=== PATIENT | female | born 1945 | race Caucasian/White ===

== ENCOUNTER 2017-10-28 15:39 | Inpatient (IN) | payer OTHER, MEDICAID ==
[~2017-10-28] VITALS: Ht 167.6 cm; Wt 65.8 kg
[2017-10-28] MEDS ORDERED: BENAZEPRIL (15:49)
[2017-10-28] MEDS ORDERED: LIPITOR (15:49)
--- NOTE | 2017-10-28 16:22 | NUR ---
PT IS IN ROOM #1B. DR NOVA EVALUATED THE PT.
--- NOTE | 2017-10-28 16:23 | NUR ---
PT REFUSED PAIN MEDICATION. DR NOVA NOTIFIED.
[2017-10-28] MEDS ORDERED: MORPHINE SULFATE 4 MG/1 ML DISP.SYRIN ONE (16:39)
[2017-10-28] MEDS ORDERED: MORPHINE SULFATE 2 MG/1 ML DISP.SYRIN IV ONE (16:45)
[2017-10-28] MEDS ORDERED: MORPHINE SULFATE 2 MG/1 ML DISP.SYRIN ONE (16:50)
--- NOTE | 2017-10-28 17:02 | NUR ---
Transportation arranged with [facility] to transport patient to [facility] Radiology Department for imaging. Trip #[id number], ETA [id number].
--- NOTE | 2017-10-28 18:29 | NUR ---
PT LEFT TO [facility] FOR CT OF THE HEAD AND CERVICAL SPINE VIA BLS AMBULANCE ACCORDING TO DR AVTAR GALINDO.
--- NOTE | 2017-10-28 19:10 | NUR ---
REPORT GIVEN TO OPERATION SHIFT SUPERVISOR RN,
--- NOTE | 2017-10-28 20:05 | NUR ---
PT REPORTS NEW ONSET OF RT HIP PAIN. MD HERNÁNDEZ MADE AWARE.
--- NOTE | 2017-10-28 20:20 | NUR ---
CORPORATE AUDITOR AT BEDSIDE FOR RT HIP SCAN
[2017-10-28] MEDS ORDERED: TRAMADOL HCL 50 MG TABLET PO ONE (20:30)
[2017-10-28] MEDS ORDERED: TRAMADOL HCL 50 MG TABLET ONE (20:31)
[2017-10-28 21:05] LABS: BASOPHILS % (AUTO) 0.4 % (0.0-2.0); EOSINOPHILS # (AUTO) 0.1 K/uL (0.0-0.7); EOSINOPHILS % (AUTO) 1.6 % (0.0-7.0); HEMATOCRIT 39.8 % (31.2-41.9); HEMOGLOBIN 13.4 g/dL (10.9-14.3); LYMPHOCYTES # (AUTO) 1.1 K/uL (20.0-40.0); LYMPHOCYTES % (AUTO) 15.2 % (20.5-51.5); MEAN CORPUSCULAR HEMOGLOBIN 32.1 uug (24.7-32.8); MEAN CORPUSCULAR HGB CONC 34 g/dL (32.3-35.6); MEAN CORPUSCULAR VOLUME 95.5 fL (75.5-95.3); MONOCYTES # (AUTO) 0.8 K/uL (2.0-10.0); NEUTROPHILS # (AUTO) 4.9 K/uL (1.8-8.9); NEUTROPHILS % (AUTO) 70.8 % (38.5-71.5); PLATELET COUNT (AUTO) 249 K/uL (179-408); RED BLOOD CELL COUNT(AUTO) 4.17 MIL/uL (3.63-4.92)
[2017-10-28 21:11] LABS: CARBON DIOXIDE 25 mmol/L (21-32); CHLORIDE 104 mmol/L (98-107); CREATININE 0.9 mg/dL (0.6-1.3); GLUCOSE 116 mg/dL (74-106); POTASSIUM 4.4 mmol/L (3.5-5.1); UREA NITROGEN, BLOOD 20 mg/dL (7-18)
--- NOTE | 2017-10-28 21:20 | NUR ---
CALL RECEIVED FROM BETH Gómez/ [facility] PERTAINING TO PT STATUS FOR TRANSFER. CALL GIVEN TO MD HERNÁNDEZ FOR ADDITIONAL INFO.
--- NOTE | 2017-10-29 01:08 | NUR ---
PT IN BED RESTING QUIETLY WITH EYES CLOSED. PT IS CALM AND COOPERATIVE. NO SIGNS OF DISTRESS WITNESSED AT THIS TIME.
[2017-10-29] MEDS ORDERED: ONDANSETRON 4 MG/2 ML VIAL IV PRN (02:00)
[2017-10-29] MEDS ORDERED: Z GUARD REMEDY PASTE 57 GM TUBE TOP PRN (02:00)
[2017-10-29] MEDS ORDERED: MAGNESIUM HYDROXIDE 30 ML LIQUID UDC PO PRN (02:00)
[2017-10-29] MEDS ORDERED: ACETAMINOPHEN 325 MG TABLET PO PRN (02:00)
[2017-10-29] MEDS ORDERED: HYDROCODONE/APAP 5-325MG TABLET PO PRN (02:00)
--- NOTE | 2017-10-29 02:35 | NUR ---
REPORT GIVEN TO MEDSUR NURSEHAILEY
[2017-10-29 03:45] VITALS: BP 133/76
--- NOTE | 2017-10-29 03:50 | NUR ---
Pt. admitted to [facility], under care of Dr. REYEZ Belongs List completed
--- NOTE | 2017-10-29 04:30 | NUR ---
Nursing Note: Report received from ER nurse Pt is 72 y/o female. Admitted to [facility] from ER for closed head injury Pt awake alert oriented x 3. Respirations unlabored on room air. Lungs clear on auscultation bilaterally. Bowel sounds present in all 4 quadrants. Pt noted to have strong grasp bilaterally in upper extremities. No change in LOC. Able to move bilateral lower extremities but is reporting pain on Right lower extremity that has been relieved by medication. Skin generally intact except for wound on left allen which was photographed. Pt able to answer questions and make needs known as well. Pt oriented to room. Instructed to press call light for assistance. Pt reporting the inability to walk due to hip pain. Side rails up x 2. Bed in locked position and low. Call light in reach at all times. Will continue to monitor.
--- NOTE | 2017-10-29 07:20 | NUR ---
PATIENT IS AWAKE ALERT AND ORIENTED DENIES PAIN OR DISCOMFORTS AT THIS TIME WAITING TO KNOW WHEN THE DOCTOR WILL BE HERE TO SEE HER REASSURED HER THAT SOON THE DOCTOR STARTS TO MAKE ROUNDS I WILL LET HER KNOW. CALL LIGHTS ARE WITHIN EASY REACH AT THIS TIME AND WILL CONTINUE TO OBSERVE.
[2017-10-29] MEDS ORDERED: BENAZEPRIL HCL 10 MG TABLET PO SCH (09:00)
--- NOTE | 2017-10-29 10:30 | NUR ---
PATIENT NOTED TO HAVE ABRASION ON TOP PART OF HER BACK MD AWARE WITH ORDERS AND NOTED
[2017-10-29] MEDS ORDERED: BACITRACIN/POLYMYXIN B OINT 15 GM TUBE TOP SCH (10:45)
--- NOTE | 2017-10-29 11:34 | NUR ---
PATIENT SEEN BY THE PHYSICAL THERAPY AND SHE WAS ABLE TO AMBULATE IN THE HALLWAY WITH [facility].
[2017-10-29 12:00] VITALS: BP 115/82
[2017-10-29] MEDS ORDERED: BENA20TA9 PO (13:48)
[2017-10-29] MEDS ORDERED: ATOR10TA PO (13:49)
[2017-10-29] MEDS ORDERED: OXYB5TAB PO (13:50)
[2017-10-29] MEDS ORDERED: ASPI-605 PO (13:51)
[2017-10-29] MEDS ORDERED: GABA-534 PO (13:51)
[2017-10-29] MEDS ORDERED: RAME8TAB15 PO (14:08)
[2017-10-29 16:00] VITALS: BP 117/76
--- NOTE | 2017-10-29 16:55 | NUR ---
NEW ORDERS TO DISCHARGE PATIENT HOME NOTED FROM DR JIMÉNEZ PATIENT AWARE AND STATED THAT HER FRIEND WILL PICK HER UP.
--- NOTE | 2017-10-29 17:25 | NUR ---
DISCHARGE INSTRUCTIONS GIVEN TO PATIENT AND PATIENT STATED WILL CALL OWN DOCTOR TO SET UP APPOINTMENT THIS WEEK.AWAITING FOR HER RIDE AT THIS TIME
--- NOTE | 2017-10-29 17:47 | NUR ---
PATIENT DISCHARGED PICKED UP BY HER FRIEND ALBERTO IN SATISFACTORY CONDITION WITH ALL OF HER PERSONAL BELONGINGS.PATIENT STATED WILL CALL HER OWN DOCTOR HERSELF
== END 2017-10-29 17:47 | disposition home or self-care (01) | DRG 90 ==
LOC: ER 15:42 → MED 10-29 03:23
PROVIDERS: ADMIT Internal Medicine; ATTEND Internal Medicine
DX: S06.0X0A Concussion without loss of consciousness, initial encounter (principal); V48.4XXA Person boarding or alighting a car injured in noncollision transport accident, initial encounter; Y93.89 Activity, other specified; Y92.89 Other specified places as the place of occurrence of the external cause; M51.34 Other intervertebral disc degeneration, thoracic region; M50.322 Other cervical disc degeneration at C5-C6 level; M51.36 Other intervertebral disc degeneration, lumbar region; E78.5 Hyperlipidemia, unspecified; Z96.652 Presence of left artificial knee joint; Z96.641 Presence of right artificial hip joint; M85.80 Other specified disorders of bone density and structure, unspecified site; I10 Essential (primary) hypertension; Z87.891 Personal history of nicotine dependence; Z79.82 Long term (current) use of aspirin; M25.512 Pain in left shoulder; R94.31 Abnormal electrocardiogram [ECG] [EKG]; R94.4 Abnormal results of kidney function studies; Z79.899 Other long term (current) drug therapy
CPT/HCPCS: 36415; 70450; 71045; 72125; 72170; 73030; 73502; 85025; 93005; 97165; A4663; J2270

== ENCOUNTER 2017-10-31 10:35 | Inpatient (IN) | payer OTHER, MEDICAID ==
[~2017-10-31] VITALS: Ht 167.6 cm; Wt 71.4 kg
[~2017-10-31 10:35] MED LIST: ASPI-605 PO; ATOR10TA PO; BENA20TA9 PO; GABA-534 PO; OXYB5TAB PO; RAME8TAB15 PO
[2017-10-31] MEDS ORDERED: MECL-102 PO (10:52)
[2017-10-31] MEDS ORDERED: ONDANSETRON 4 MG/2 ML VIAL IV ONE (11:15)
[2017-10-31] MEDS ORDERED: SILVER SULFADIAZINE 1% CREAM 50 GM TP ONE (11:15)
[2017-10-31] MEDS ORDERED: SILVER SULFADIAZINE 1% CREAM 25 GM TUBE TP ONE ×2 (11:27→22:15)
[2017-10-31] MEDS ORDERED: ONDANSETRON 4 MG/2 ML VIAL ONE (11:28)
[2017-10-31 11:34] LABS: BASOPHILS % (AUTO) 0.7 % (0.0-2.0); EOSINOPHILS # (AUTO) 0.2 K/uL (0.0-0.7); EOSINOPHILS % (AUTO) 2.5 % (0.0-7.0); HEMATOCRIT 36.2 % (31.2-41.9); HEMOGLOBIN 12.5 g/dL (10.9-14.3); LYMPHOCYTES # (AUTO) 1.4 K/uL (20.0-40.0); LYMPHOCYTES % (AUTO) 21.5 % (20.5-51.5); MEAN CORPUSCULAR HEMOGLOBIN 33.4 uug (24.7-32.8); MEAN CORPUSCULAR HGB CONC 35 g/dL (32.3-35.6); MEAN CORPUSCULAR VOLUME 96.6 fL (75.5-95.3); MONOCYTES # (AUTO) 0.6 K/uL (2.0-10.0); MONOCYTES % (AUTO) 8.9 % (0.0-11.0); NEUTROPHILS # (AUTO) 4.2 K/uL (1.8-8.9); NEUTROPHILS % (AUTO) 66.4 % (38.5-71.5); PLATELET COUNT (AUTO) 258 K/uL (179-408); RED BLOOD CELL COUNT(AUTO) 3.74 MIL/uL (3.63-4.92); WHITE BLOOD COUNT (AUTO) 6.4 K/uL (3.8-11.8)
--- NOTE | 2017-10-31 11:34 | NUR ---
PATIENT WAS SEEN BY MD FOR C/O WOUND ON HER UPPER BACK AND PAIN. STATES SHE FELL COUPLE DAYS AGO. WOUND CLEANSED AND DRESSED.. SILVADENE CREAM APPLIED ORDERED BY .
[2017-10-31 11:43] LABS: CARBON DIOXIDE 19 mmol/L (21-32); CHLORIDE 107 mmol/L (98-107); CREATININE 0.9 mg/dL (0.6-1.3); GLUCOSE 95 mg/dL (74-106); POTASSIUM 3.9 mmol/L (3.5-5.1); UREA NITROGEN, BLOOD 21 mg/dL (7-18)
[2017-10-31 11:59] LABS: ALANINE AMINOTRANSFERASE 27 U/L (14-59); ALKALINE PHOSPHATASE 89 U/L (50-136); ASPARTATE AMINOTRANSFERASE 18 U/L (15-37); BILIRUBIN,DIRECT 0.2 mg/dL (0.0-0.2); BILIRUBIN,TOTAL 0.8 mg/dL (0.2-1.0); TOTAL PROTEIN, SERUM 7.2 g/dL (6.4-8.2)
--- NOTE | 2017-10-31 12:38 | NUR ---
PATIENT STATES NAUSEA HAS DIMINISHED. PATIENT AWARE OF PENDING ADMISSION. REPORT GIVEN TO KACEY BARAJAS.
[2017-10-31] MEDS ORDERED: PRAM0.253 PO (12:59)
[2017-10-31] MEDS ORDERED: ONDANSETRON 4 MG/2 ML VIAL IV PRN (13:15)
[2017-10-31] MEDS ORDERED: HYDROCODONE/APAP 5-325MG TABLET PO PRN ×2 (13:15→22:00)
[2017-10-31] MEDS ORDERED: Z GUARD REMEDY PASTE 57 GM TUBE TOP PRN (13:15)
[2017-10-31] MEDS ORDERED: MAGNESIUM HYDROXIDE 30 ML LIQUID UDC PO PRN (13:15)
[2017-10-31] MEDS ORDERED: ACETAMINOPHEN 325 MG TABLET PO PRN (13:15)
[2017-10-31] MEDS ORDERED: HYDROCODONE/APAP 10-325 MG TABLET PO PRN (13:15)
[2017-10-31] MEDS ORDERED: TEMAZEPAM 15 MG CAPSULE PO PRN (13:15)
[2017-10-31] MEDS ORDERED: PRAMIPEXOLE 0.25 MG TABLET PO PRN (13:30)
--- NOTE | 2017-10-31 13:46 | NUR ---
STILL AITING FOR INSURANCE TO ANSWER SOME QUESTIONS BEFORE ADMITTING PATIENT TO HOSPITAL ROOM... PATIENT IS AWAKE AND ALERT WITH NO NEW COMPLAINTS. SHE DRANK SOME ORANGE JUICE
[2017-10-31 14:15] VITALS: BP 102/71
--- NOTE | 2017-10-31 14:15 | NUR ---
Patient transferred from ER to med-surg floor at this time in stable condition, no s/s of distress. Vital signs within normal limits. fall risk. bed alarm on. id band placed. no complaints of pain verbalized by patient at this time. Patient does complain of vertigo with sudden head movements. a/ox4, guarded. weak gait. PT consult placed. pictures taken of wounds, placed in chart. wound care consult ordered. will continue to monitor throughout shift and follow admitting orders.
[2017-10-31] MEDS: MECLIZINE HCL 25 MG TABLET PO SCH ×2 (15:23→21:34)
[2017-10-31 15:51] VITALS: BP 94/58
[2017-10-31] MEDS: IV NS 1000 ML 1,000 ML IV PRN (16:00)
[2017-10-31] MEDS ORDERED: SILVER SULFADIAZINE 1% CREAM 50 GM TP SCH (16:30)
[2017-10-31] MEDS: GABAPENTIN 300 MG CAPSULE PO SCH (17:40)
--- NOTE | 2017-10-31 18:02 | NUR ---
No significant changes from time of admission. vital signs wnl. ivf running. no signs of distress. silvadene cream ordered for wound care. tolerating diet very well. bed alarm on, call light within reach of patient.
--- NOTE | 2017-10-31 19:30 | NUR ---
RECEIVED SHIFT REPORT FROM DAY SHIFT RN. PT IN BED. NO PAIN, C/P, SOB, N/V. IVF NS INFUSING AT 75 CC/HR VIA 22W G R FOREARM. BED IN LOW AND LOCKED POSITION WITH BILATERAL UPPER SIDERAILS UP. CALL LIGHT WITHIN REACH. FRIEND AT BEDSIDE.
[2017-10-31 20:00] VITALS: BP 105/53
[2017-10-31] MEDS: ATORVASTATIN 10 MG TABLET PO SCH (21:34)
--- NOTE | 2017-10-31 21:58 | NUR ---
PT C/O ACUTE R FEMORAL PAIN. UPON ASSESSMENT, NEGATIVE AMOS'S SIGN. PT C/O AGGRAVATING PAIN WHEN COUNTER PRESSURE IS APPLIED. VICENTA YANES, NOTIFIED, RECEIVED ORDER FOR NORCO 5/325 MG PRN AND XRAY OF R FEMUR. ORDERS NOTED AND CARRIED OUT. WILL CONTINUE TO MONITOR.
[2017-10-31] MEDS: SILVER SULFADIAZINE 1% CREAM 50 GM TP SCH (22:51)
[2017-11-01 04:40] VITALS: BP 104/65
[2017-11-01] MEDS: MECLIZINE HCL 25 MG TABLET PO SCH ×3 (05:53→21:02)
[2017-11-01] MEDS: IV NS 1000 ML 1,000 ML IV PRN ×2 (05:57→20:53)
[2017-11-01] MEDS: PANTOPRAZOLE SODIUM 40 MG TABLET.DR PO SCH (06:00)
[2017-11-01 06:12] LABS: BASOPHILS % (AUTO) 0.4 % (0.0-2.0); EOSINOPHILS # (AUTO) 0.2 K/uL (0.0-0.7); EOSINOPHILS % (AUTO) 3.6 % (0.0-7.0); HEMATOCRIT 32.3 % (31.2-41.9); LYMPHOCYTES # (AUTO) 1.3 K/uL (20.0-40.0); MEAN CORPUSCULAR HEMOGLOBIN 32.7 uug (24.7-32.8); MEAN CORPUSCULAR HGB CONC 34 g/dL (32.3-35.6); MEAN CORPUSCULAR VOLUME 95.7 fL (75.5-95.3); MONOCYTES # (AUTO) 0.7 K/uL (2.0-10.0); MONOCYTES % (AUTO) 13.6 % (0.0-11.0); NEUTROPHILS # (AUTO) 2.9 K/uL (1.8-8.9); NEUTROPHILS % (AUTO) 57.4 % (38.5-71.5); PLATELET COUNT (AUTO) 239 K/uL (179-408); RED BLOOD CELL COUNT(AUTO) 3.37 MIL/uL (3.63-4.92)
[2017-11-01 06:32] LABS: CARBON DIOXIDE 24 mmol/L (21-32); CHLORIDE 111 mmol/L (98-107); CHOLESTEROL 157 mg/dL (<200); CREATININE 0.9 mg/dL (0.6-1.3); GLUCOSE 100 mg/dL (74-106); HDL CHOLESTEROL 48 mg/dL (40-60); PHOSPHOROUS 2.8 mg/dL (2.5-4.9); POTASSIUM 4.1 mmol/L (3.5-5.1); TRIGLYCERIDES 146 MG/DL (30-150); UREA NITROGEN, BLOOD 15 mg/dL (7-18)
--- NOTE | 2017-11-01 07:41 | NUR ---
patient resting comfortably in bed at this time. elevated bp - will notify administrative assistant front desk MD. refusing BP meds per caustic cresylate shift superintendent nurse. blood sugar 81 in the morning. will monitor BS closely throughout shift. no signs of distress at this time. bed alarm is on, call light within reach of patient. bed in locked/low position. side rails up x2. Addendum: 11/01/17 at 0746 by HAYDEN GONSALVES RN incorrect patient. please disregard.
--- NOTE | 2017-11-01 07:47 | NUR ---
patient resting comfortably in bed at this time. complaining of right leg pain. XR right femur ordered by MD. bedside commode at bedside. a/ox4. stable condition, no signs of distress. complains of mild vertigo upon arising from bed. bed alarm is on, call light within reach of patient. will monitor throughout shift.
[2017-11-01] MEDS: GABAPENTIN 300 MG CAPSULE PO SCH ×3 (08:05→18:05)
[2017-11-01] MEDS: OXYBUTYNIN XL 5 MG TABSR PO SCH (08:05)
[2017-11-01] MEDS: ASPIRIN EC 81 MG TABLET.DR PO SCH (08:05)
[2017-11-01] MEDS: BENAZEPRIL HCL 20 MG TABLET PO SCH (08:06)
[2017-11-01] MEDS: SILVER SULFADIAZINE 1% CREAM 50 GM TP SCH (09:53)
[2017-11-01 11:25] VITALS: BP 121/72
[2017-11-01 15:30] VITALS: BP 118/71
[2017-11-01] MEDS: DIAZEPAM 2 MG TABLET PO SCH (15:42)
--- NOTE | 2017-11-01 19:15 | NUR ---
RECEIVED SHIFT REPORT FROM JENN MENDOZA. PT RESTING COMFORTABLY IN BED. DENIES PAIN, C/P, SOB, N/V. IVF NS INFUSING AT 75 CC/HR VIA 22G R FOREARM. BED IN LOW AND LOCKED POSITION WITH BILATERAL UPPER SIDERAILS UP. CALL LIGHT WITHIN REACH. WILL CONTINUE TO MONITOR.
[2017-11-01 20:00] VITALS: BP 109/72
[2017-11-01] MEDS: ATORVASTATIN 10 MG TABLET PO SCH (20:48)
[2017-11-02 04:51] VITALS: BP 101/52
[2017-11-02] MEDS: MECLIZINE HCL 25 MG TABLET PO SCH ×2 (06:00→13:57)
[2017-11-02] MEDS: PANTOPRAZOLE SODIUM 40 MG TABLET.DR PO SCH (06:26)
--- NOTE | 2017-11-02 06:31 | NUR ---
PT SLEPT COMFORTABLY THROUGH THE NIGHT. CURRENTLY RESTING IN BED COMFORTABLY. DENIES PAIN, C/P, SOB, N/V. PT'S HOME MEDS WERE FOUND AT BEDSIDE, WILL DOCUMENT AND SEND TO PHARMACY FOR SAFE KEEPING UNTIL D/C. BED IN LOW AND LOCKED POSITION WITH BILATERAL UPPER SIDERAILS UP. CALL LIGHT WITHIN REACH. IVF NS INFUSING AT 75 ML/HR VIA 22 G R HAND IV ACCESS. IV ACCESS INTACT AND PATENT.
[2017-11-02] MEDS: OXYBUTYNIN XL 5 MG TABSR PO SCH (08:08)
[2017-11-02] MEDS: ASPIRIN EC 81 MG TABLET.DR PO SCH (08:08)
[2017-11-02] MEDS: BENAZEPRIL HCL 20 MG TABLET PO SCH (08:09)
[2017-11-02] MEDS: GABAPENTIN 300 MG CAPSULE PO SCH ×3 (08:09→16:22)
[2017-11-02] MEDS: DIAZEPAM 2 MG TABLET PO SCH (08:10)
[2017-11-02] MEDS: SILVER SULFADIAZINE 1% CREAM 50 GM TP SCH (08:55)
[2017-11-02] MEDS: IV NS 1000 ML 1,000 ML IV PRN (09:39)
[2017-11-02 11:20] VITALS: BP 143/86
[2017-11-02 15:24] VITALS: BP 118/81
--- NOTE | 2017-11-02 17:10 | NUR ---
d/c orders received noted and carried out,d/c heplock per md orders.d/c instruction and education given to the pt,pt verbalized understanding all the instruction.pt left the facility via private car in stable condition
== END 2017-11-02 17:10 | disposition home or self-care (01) | DRG 74 ==
LOC: ER 10:36 → MED 13:58
PROVIDERS: ADMIT Nurse Practitioner Acute Care; ATTEND Nurse Practitioner Acute Care
DX: G90.8 Other disorders of autonomic nervous system (principal); F07.81 Postconcussional syndrome; Z79.899 Other long term (current) drug therapy; S09.90XS Unspecified injury of head, sequela; V48 Car occupant injured in noncollision transport accident; Z79.82 Long term (current) use of aspirin; E78.5 Hyperlipidemia, unspecified; N32.81 Overactive bladder; S20.412D Abrasion of left back wall of thorax, subsequent encounter; W19.XXXD Unspecified fall, subsequent encounter; Z96.652 Presence of left artificial knee joint; Z96.641 Presence of right artificial hip joint; H81.10 Benign paroxysmal vertigo, unspecified ear; G47.00 Insomnia, unspecified; M19.90 Unspecified osteoarthritis, unspecified site; I67.2 Cerebral atherosclerosis; I10 Essential (primary) hypertension; R79.89 Other specified abnormal findings of blood chemistry
CPT/HCPCS: 36415; 70030-TC; 70450; 71045; 72125; 73551; 83735; 84100; 85025; 85730; 93005; 97116; 97530; A4663; J2405; J7030; J8597